=== PATIENT | female | born 1990 | race American Indian/Alaskan Native ===

== ENCOUNTER 2017-05-24 15:49 | Outpatient (CLI) | payer MEDICAID ==
[2017-05-24 16:17] VITALS: BP 110/61
== END 2017-05-24 18:05 | disposition home or self-care (01) ==
LOC: TRG 15:49
PROVIDERS: ATTEND Obstetrics & Gynecology
DX: O47.1 False labor at or after 37 completed weeks of gestation (principal); Z3A.37 37 weeks gestation of pregnancy